=== PATIENT | male | born 1995 | race Caucasian/White ===

== ENCOUNTER 2016-11-29 21:10 | Emergency (ER) | payer SELFPAY ==
[~2016-11-29] VITALS: Ht 182.9 cm; Wt 132.5 kg
[~2016-11-29 21:10] MED LIST: ABILIFY10 MG PO; NAPROSYN500 MG PO; NOHOMEMEDS; PROMETHAZINE HC25 M1 PO; STRATTERA18 MG PO; STRATTERA60 MG PO; ULTRAM50 MG PO; ZANTAC150 MG PO
[2016-11-29 22:31] LABS: BASOPHIL COUNT 0.1 K/uL (0-0.1); EOSINOPHIL (%) 4.8 % (0-5); EOSINOPHIL COUNT 0.4 K/uL (0-0.3); HEMATOCRIT 41.6 % (38.0-50.0); IMMATURE GRANULOCYTE (%) 0.4 % (0.0-0.7); INSTRUMENT ABS NEUTROPHIL CT 4.3 K/uL; LYMPHOCYTE COUNT 2.3 K/uL (1.0-2.8); MCHC 33.2 G/DL (30.0-36.0); MCV 90.4 FL (86-99); MEAN PLAT.VOLUME 10.5 uM^3 (9.0-12.4); MONOCYTE (%) 11.4 % (3-12); MONOCYTE COUNT 0.9 K/uL (0-0.8); NEUTROPHIL (%) 54.1 % (45-76); NEUTROPHIL COUNT 4.3 K/uL (1.8-6.4); PLATELET COUNT 190 K/uL (156-360); RBC DIS.WIDTH-CV 13.2 % (11.8-14.6); RBC DIS.WIDTH-SD 43.5 % (39-53); WHITE BLOOD COUNT 7.9 K/uL (4.1-10.2)
[2016-11-29 22:41] LABS: CHLORIDE 106 mEq/L (99-109); POTASSIUM 3.7 mEq/L (3.7-5.4); SODIUM 141 mEq/L (136-147)
[2016-11-29 22:42] LABS: GLUCOSE 95 mg/dL (70-99)
[2016-11-29 22:44] LABS: ANION GAP 9 MEQ/L (2-14)
[2016-11-29 22:46] LABS: GFR ESTIMATE (CALCULATED) > 59 mL/min/
[2016-11-29 22:47] LABS: UREA NITROGEN (BUN) 20 mg/dL (9-23)
[2016-11-30] MEDS ORDERED: FIORICET,ESG1 TABLET PO (00:44)
[2016-11-30 00:57] VITALS: BP 111/72
== END 2016-11-30 00:58 | disposition home or self-care (01) ==
LOC: EME 21:10
PROVIDERS: Emergency Medicine
DX: G43.909 Migraine, unspecified, not intractable, without status migrainosus (principal); F17.200 Nicotine dependence, unspecified, uncomplicated
CPT/HCPCS: 70450; 80048; 85025; 99281; 99285; J1100; J1200; J2765; J7030

== ENCOUNTER 2017-10-15 12:10 | Emergency (ER) | payer SELFPAY ==
[~2017-10-15] VITALS: Ht 182.9 cm; Wt 141.2 kg
[~2017-10-15 12:10] MED LIST changes: +FIORICET,ESG1 TABLET PO
[2017-10-15 13:45] LABS: HEMATOCRIT 44.6 % (38.0-50.0); HEMOGLOBIN 15.6 G/DL (12.5-16.6); MCH 30.7 PG (29.0-34.0); MCV 87.8 FL (86-99); PLATELET COUNT 230 K/uL (156-360); RBC DIS.WIDTH-SD 42.4 % (39-53); RED BLOOD COUNT 5.08 M/uL (4.00-5.50); WHITE BLOOD COUNT 7.4 K/uL (4.1-10.2)
[2017-10-15 13:59] LABS: ALBUMIN 4.5 g/dL (3.2-4.8); CHLORIDE 103 mEq/L (99-109)
[2017-10-15 14:00] LABS: POTASSIUM 4.3 mEq/L (3.7-5.4); SODIUM 140 mEq/L (136-147)
[2017-10-15 14:02] LABS: GLUCOSE 102 mg/dL (70-99); TOTAL PROTEIN 8.1 g/dL (6.4-8.3)
[2017-10-15 14:04] LABS: TOTAL BILIRUBIN 0.6 mg/dL (0.0-1.0)
[2017-10-15 14:05] LABS: ALKALINE PHOSPHATASE 86 IU/L (3-129); CREATININE 1.1 mg/dL (0.6-1.3); GFR ESTIMATE (CALCULATED) > 59 mL/min/ (58.99-99999)
[2017-10-15 14:07] LABS: AST (GOT) 32 IU/L (2-34); UREA NITROGEN (BUN) 17 mg/dL (9-23)
[2017-10-15 14:08] LABS: ALT (GPT) 55 IU/L (3-49)
[2017-10-15 14:11] LABS: APPEARANCE CLEAR ((CLEAR)); BILIRUBIN NEGATIVE; BLOOD NEGATIVE; COLOR YELLOW ((YELLOW)); GLUCOSE (STRIP) NEGATIVE; KETONES NEGATIVE; LEUKOCYTES NEGATIVE; NITRITE NEGATIVE; PROTEIN (STRIP) NEGATIVE; SPECIFIC GRAVITY 1.021 (1.000-1.030); UCUL ADDED? NO; UROBILINOGEN 0.2 MG/DL (0.2-1.0)
[2017-10-15] MEDS ORDERED: ZOFRAN4 MG PO (16:50)
[2017-10-15 18:02] VITALS: BP 126/76
== END 2017-10-15 18:04 | disposition home or self-care (01) ==
LOC: EME 12:10
DX: R10.31 Right lower quadrant pain (principal); M41.86 Other forms of scoliosis, lumbar region; K76.0 Fatty (change of) liver, not elsewhere classified; R16.0 Hepatomegaly, not elsewhere classified; G43.909 Migraine, unspecified, not intractable, without status migrainosus; F90.9 Attention-deficit hyperactivity disorder, unspecified type; F39 Unspecified mood [affective] disorder; F32.9 Major depressive disorder, single episode, unspecified; F17.200 Nicotine dependence, unspecified, uncomplicated; Z87.798 Personal history of other (corrected) congenital malformations; Z88.5 Allergy status to narcotic agent; Z88.1 Allergy status to other antibiotic agents
CPT/HCPCS: 74177; 76870; 80053; 81003; 85027; 93975; 99281; 99285; J2405; J7120